=== PATIENT | female | born 1950 ===

== ENCOUNTER → 2022-09-19 | Emergency (ER) | payer OTHER ==
[~2022-09-19] VITALS: Ht 160 cm; Wt 65.8 kg
[~2022-09-19] MED LIST: COZAAR25 MG PO; HORIZANT300 MG PO; PEPCID AC20 MG PO; SYNTHROID88 MCG PO; ZOFRAN8 MG PO
== END | disposition home or self-care (01) ==
LOC: ER 12:31
DX: K52.9 Noninfective gastroenteritis and colitis, unspecified (principal); I10 Essential (primary) hypertension; E03.9 Hypothyroidism, unspecified; Z20.822 Contact with and (suspected) exposure to COVID-19